=== PATIENT | male | born 2000 | race Caucasian/White ===

== ENCOUNTER 2022-09-01 13:15 | Emergency (ER) | payer OTHER, SELFPAY ==
[2022-09-01] MEDS ORDERED: Ketorolac Tromethamine 30 MG/ML VIAL ONE (14:00)
[2022-09-01] MEDS ORDERED: Boostrix 0.5 ML (Tdap) VIAL (>/=7 yrs of age) ONE ×2 (14:52→14:55)
== END 2022-09-01 15:23 | disposition home or self-care (01) ==
LOC: ERS 13:15
DX: S00.83XA Contusion of other part of head, initial encounter (principal); S40.012A Contusion of left shoulder, initial encounter; S40.011A Contusion of right shoulder, initial encounter; V86.59XA Driver of other special all-terrain or other off-road motor vehicle injured in nontraffic accident, initial encounter; Y93.55 Activity, bike riding
CPT/HCPCS: 70450; 71045; 90471; 90715; 96372; J1885

== ENCOUNTER 2022-09-05 01:53 | Emergency (ER) | payer SELFPAY ==
[2022-09-05] MEDS ORDERED: cefTRIAXone\\ROCEPHIN 1 GM VIAL ONE (03:50)
[2022-09-05] MEDS ORDERED: Lidocaine 1% MPF 2 ML VIAL ONE (03:53)
== END 2022-09-05 04:42 | disposition home or self-care (01) ==
LOC: ERS 01:53
DX: L03.115 Cellulitis of right lower limb (principal); L02.415 Cutaneous abscess of right lower limb; F17.210 Nicotine dependence, cigarettes, uncomplicated
CPT/HCPCS: 96372; 99283; J0696